=== PATIENT | female | born 1940 | race Asian ===

== ENCOUNTER → 2022-05-24 | Outpatient (CLI) | payer MEDICARE ==
[~2022-05-24] MED LIST: AMINOPHYLLINE 25 MG/ML 10 ML VIAL IVP PRN; REGADENOSON 0.4 MG/5 ML PF SYRINGE IVP ONE; SESTAMIBI TC99M/UD ISOTOPE 1 EA INJ INJ ONE
[2022-05-24 11:41] VITALS: BP 126/56
[2022-05-24 11:51] VITALS: BP 132/62
== END | disposition home or self-care (01) ==
LOC: CARDMN 08:39
PROVIDERS: ATTEND Internal Medicine Cardiovascular Disease
DX: I51.7 Cardiomegaly (principal); R07.9 Chest pain, unspecified
CPT/HCPCS: 78452; 93017; A9500